=== PATIENT | female | born 1965 | race Caucasian/White ===

== ENCOUNTER → 2017-05-17 | Outpatient (CLI) | payer BC ==
[~2017-05-17] MED LIST: MULT-506 PO; ONDA8TAB62 SL; OXYC-106 PO; OXYC80TA PO; OXYSR/10 PO; [UNRECOGNIZED DRUG - OTHER] PO
--- NOTE | 2017-05-17 18:18 | DIAGNOSTIC IMAGING REPORT ---
THORACIC SPINE WITHOUT HISTORY: Pain CHRONIC BACK PAIN TECHNIQUE: Multiplanar multisequence MRI of the thoracic spine was performed without the use of contrast. COMPARISON: 10/30/2015 FINDINGS: Alignment and curvature are intact. No fracture or subluxation. No significant central canal or neural foraminal narrowing. Signal characteristics of the vertebral bodies are unremarkable. Mild degenerative disc desiccation at all levels. No change from the prior exam. IMPRESSION: 1. No evidence of disc herniation or spinal stenosis. 2. Mild degenerative disc change. 3. No change from the prior body. The above report was generated using voice recognition software. It may contain grammatical, syntax or spelling errors. Electronically signed by: Rafael Alvarez M.D. 05/17/2017 6:17 PM Dictated Date/Time: 05/17/2017 6:14 PM
== END | disposition home or self-care (01) ==
LOC: C.MRI 17:12
PROVIDERS: ATTEND Physical Medicine & Rehabilitation Sports Medicine
DX: M51.86 Other intervertebral disc disorders, lumbar region (principal)

== ENCOUNTER → 2017-05-18 | Outpatient (CLI) | payer BC ==
--- NOTE | 2017-05-18 20:28 | DIAGNOSTIC IMAGING REPORT ---
MRI CERVICAL WITHOUT CONTRAST CLINICAL HISTORY: Neck pain with bilateral arm radiculopathy. TECHNIQUE: Sagittal and axial T1, T2 and STIR images were obtained. COMPARISON STUDY: 03/03/2015 There are no suspicious areas of marrow replacement. No intrinsic cervical cord lesions are visualized. C2-3: There is no evidence of disc bulge or focal herniation. There is no spinal or foraminal stenosis. C3-4: There is no evidence of disc bulge or focal herniation. There is no spinal or foraminal stenosis. C4-5: There is a minimal circumferential disc bulge. There is no significant spinal foraminal stenosis C5-6 :There is a mild circumferential disc bulge. There is mild spinal canal narrowing. There is right-sided foraminal narrowing. C6-7: There is a small central disc protrusion minimally asymmetric to the left. There is deformity of the anterior thecal sac. There is no significant foraminal narrowing C7-T1: There is no evidence of disc bulge or focal herniation. There is no evidence of spinal or foraminal stenosis. IMPRESSION: 1. No significant change from the prior study 2. C5-6 disc bulge with mild spinal stenosis and right-sided foraminal narrowing 3. Small C6-7 central disc protrusion. 4. No cord lesions are visualized. Electronically signed by: Jeronimo Leslie M.D. 05/18/2017 8:27 PM Dictated Date/Time: 05/18/2017 8:23 PM
== END | disposition home or self-care (01) ==
LOC: C.MRI 19:26
PROVIDERS: ATTEND Physical Medicine & Rehabilitation Sports Medicine
DX: M50.20 Other cervical disc displacement, unspecified cervical region (principal)

== ENCOUNTER → 2017-05-19 | Outpatient (CLI) | payer BC ==
--- NOTE | 2017-05-19 16:07 | DIAGNOSTIC IMAGING REPORT ---
LUMBAR SPINE MRI HISTORY: Low back pain. THORACIC DISC Disease, back Pain, cervicalgia TECHNIQUE: Multiplanar multisequence MRI of the lumbar spine was performed without the use of contrast. COMPARISON: Lumbar spine MRI 08/15/2014. FINDINGS: For the purpose of the report the L5-S1 disc space will be located on axial image 27 of 30. Mild discharge scoliosis, unchanged. Alignment remains intact. There are few scattered hemangiomas within the L3 and L4 vertebral bodies, unchanged. The conus terminates at the L1 level. Moderate disc space narrowing at L4-L5. Moderate to severe disc space narrowing at L5-S1. This remains unchanged. The visualized retroperitoneal soft tissues are unremarkable. Mild soft tissue edema posterior to the S1-S3 levels. This remains there is evidence for previous laminectomy at L5. L1-L2: No significant central canal or neural foraminal narrowing. L2-L3: No significant central canal or neural foraminal narrowing. L3-L4: Small broad-based posterior disc bulge with ligamentum and facet hypertrophy. This results in interval central canal narrowing. No significant neural foraminal narrowing. L4-L5: No significant central canal or neural foraminal narrowing. Bilateral facet arthrosis. L5-S1: No central canal narrowing. Bilateral facet arthrosis resulting in mild left-sided neural foraminal narrowing. IMPRESSION: 1. No change compared to the prior study. 2. Postoperative changes at L5. 3. Minimal central canal narrowing at L3-L4 due to the broad-based posterior disc bulge. Electronically signed by: Nigel Bernardo M.D. 05/19/2017 4:05 PM Dictated Date/Time: 05/19/2017 3:59 PM
== END | disposition home or self-care (01) ==
LOC: C.MRI 14:49
PROVIDERS: ATTEND Physical Medicine & Rehabilitation Sports Medicine
DX: M51.86 Other intervertebral disc disorders, lumbar region (principal)

== ENCOUNTER → 2017-10-19 | Outpatient (CLI) | payer BC ==
--- NOTE | 2017-10-19 14:53 | DIAGNOSTIC IMAGING REPORT ---
R HIP UNILATERAL MIN 2 VIEWS HISTORY: 52 years-old Female LATERAL RIGHT HIP PAIN acute right-sided hip pain without reported trauma COMPARISON: CT abdomen and pelvis 07/14/2010 TECHNIQUE: 2 views of the right hip FINDINGS: There is mild right hip osteoarthritis. No acute fracture or dislocation identified. Imaged right hemipelvis appears intact. Soft tissues are within normal limits without opaque foreign body. IMPRESSION: Mild degenerative changes without acute fracture or dislocation. The above report was generated using voice recognition software. It may contain grammatical, syntax or spelling errors. Electronically signed by: Pito Banegas M.D. 10/19/2017 2:52 PM Dictated Date/Time: 10/19/2017 2:51 PM
== END | disposition home or self-care (01) ==
LOC: C.RDSM 13:20
PROVIDERS: ATTEND Internal Medicine
DX: M25.551 Pain in right hip (principal)

== ENCOUNTER → 2017-12-26 | Outpatient (CLI) | payer BC ==
--- NOTE | 2017-12-26 16:56 | DIAGNOSTIC IMAGING REPORT ---
ABDOMEN LIMITED (US) CLINICAL HISTORY: Bilateral groin pain and swelling. COMPARISON STUDY: Abdomen and pelvis CT 07/14/2010. FINDINGS: Real-time sonographic imaging of the bilateral inguinal regions was performed. No fluid collection or masses identified. Bilateral inguinal lymph nodes are noted. The majority of these are subcentimeter in size in short axis diameter and demonstrate normal fatty laurel and normal cortices. Dominant lymph node within the left groin measures 3.0 x 1.6 x 0.9 cm best seen on image 26. This is borderline enlarged and demonstrates a slightly thickened cortex. IMPRESSION: 1. No fluid collections or masses identified within the bilateral inguinal regions. 2. A single borderline enlarged left inguinal lymph node measuring 3.0 x 1.6 x 0.9 cm. Consider one month follow-up to ensure stability/resolution. Otherwise, the remaining bilateral inguinal lymph nodes do not meet sonographic criteria for pathology. Electronically signed by: Nigel Bernardo M.D. 12/26/2017 4:54 PM Dictated Date/Time: 12/26/2017 4:51 PM
--- NOTE | 2017-12-26 17:00 | DIAGNOSTIC IMAGING REPORT ---
ABDOMINAL ULTRASOUND, RIGHT UPPER QUADRANT HISTORY: Right upper quadrant pain.. COMPARISON: Abdominal ultrasound 05/30/2013. FINDINGS: Pancreas: The pancreatic head is obscured by overlying bowel gas. The remaining portions of the pancreas are within normal limits. Pancreatic duct is top normal in diameter measuring up to 2.6 mm. Liver: Unremarkable. Gallbladder: No gallbladder wall thickening. No gallstones. CBD: 6.5 mm. Right kidney: No hydronephrosis. IMPRESSION: 1. Normal gallbladder. No gallstones. 2. Borderline dilated common bile duct measuring 6.5 mm. This is similar to the prior study. Recommend correlation with LFTs to exclude an obstructive Electronically signed by: Nigel Bernardo M.D. 12/26/2017 4:58 PM Dictated Date/Time: 12/26/2017 4:55 PM
== END | disposition home or self-care (01) ==
LOC: C.ULTR 15:36
PROVIDERS: ATTEND Internal Medicine
DX: R59.9 Enlarged lymph nodes, unspecified (principal); R10.11 Right upper quadrant pain

== ENCOUNTER → 2018-01-19 | Outpatient (CLI) | payer BC ==
[~2018-01-19] MED LIST changes: +GADAVIST IV PRN
--- NOTE | 2018-01-19 20:52 | DIAGNOSTIC IMAGING REPORT ---
MRI ABDOMEN COMBO CLINICAL HISTORY: Right upper quadrant abdominal pain. Right-sided upper back pain. TECHNIQUE: Imaging was performed prior to and following IV contrast injection. (6.5 cc intravenous Gadavist) COMPARISON STUDY: Biliary ultrasound dated 12/26/2017 FINDINGS: Imaging was performed in the axial and coronal planes. There are no suspicious areas of marrow replacement. No gallbladder abnormalities are visualized. There are tiny subcentimeter cyst within the caudate lobe. No suspicious hepatic masses are visualized. No splenic masses are visualized. The common bile duct remains borderline dilated measuring 6.6 mm. No common bile duct filling defects are visualized. There is no pancreatic ductal dilatation. No pancreatic masses are visualized. There is no abdominal aortic dilatation. There are no renal masses. There are no adrenal masses. There is no pathologic adenopathy. Postcontrast images reveal no pathologically enhancing masses. IMPRESSION: Borderline dilatation of the common bile duct measuring 6.6 mm. This remains unchanged from the prior ultrasound study. Tiny subcentimeter cyst within the caudate lobe of the liver. Otherwise normal MRI of the abdomen. Electronically signed by: Jeronimo Leslie M.D. 01/19/2018 8:51 PM Dictated Date/Time: 01/19/2018 8:45 PM
== END | disposition home or self-care (01) ==
LOC: C.MRI 19:13
PROVIDERS: ATTEND Internal Medicine
DX: K83.8 Other specified diseases of biliary tract (principal); R10.11 Right upper quadrant pain; K76.89 Other specified diseases of liver

== ENCOUNTER 2021-07-06 20:47 | Inpatient (IN) ==
[2021-07-06] MEDS ORDERED: SODIUM CHLORIDE 0.9% 1000ML 1,000 ML IV ONE (22:01)
--- NOTE | 2021-07-06 22:30 | Emergency Department Note ---
History of Present Illness General Chief complaint: Illness Stated complaint: COVID Time Seen by Provider: 07/06/21 21:18 Source: patient Mode of arrival: ambulatory Limitations: no limitations History of Present Illness Maximum Pain Intensity: 5 This patient is a 49-year-old female who presents to the emergency department for evaluation of COVID-19 symptoms. Patient first developed symptoms 8 days ago and tested positive 5 days ago. She did not receive a COVID-19 vaccination. She has had shortness of breath, dizziness/lightheadedness, nausea, and decreased appetite. She feels very dehydrated. She has had fevers and cough. She reports body aches. She has been taking Mucinex at home. She states that s he contacted her primary care provider's office who called her in a prescription for doxycycline but she has been unable to take this. She does states she has been monitoring her oxygen levels at home and they have dropped as low as 86%, especially at night. She states that today, they have been between 89 and 93%. Home Medications Medication Instructions Recorded Confirmed Type ascorbic acid (vitamin C) 1,000 mg 1,000 mg PO DAILY 12/28/19 07/06/21 History tablet aspirin 325 mg tablet,delayed 325 mg PO DAILY 12/28/19 07/06/21 History release cholecalciferol (vitamin D3) 50 1 unit PO DAILY 12/28/19 07/06/21 History mcg (2,000 unit) capsule diazepam 5 mg tablet 5 mg PO TID PRN 12/28/19 07/06/21 History multivitamin (Multiple Vitamins) 1 tab PO DAILY 12/28/19 07/06/21 History omega-3 fatty acids 1,000 mg 1,000 mg PO DAILY 12/28/19 07/06/21 History capsule (Fish Oil Concentrate) oxycodone 10 mg tablet,crush 30 mg PO Q12 12/28/19 07/06/21 History resistant,extended release 12 hr oxycodone-acetaminophen 10 mg-325 1 tab PO Q4H PRN 12/28/19 07/06/21 History mg tablet oxycodone 80 mg tablet,extended 80 mg PO BID 07/06/21 07/06/21 History release,12 hr Allergies Allergy/AdvReac Type Severity Reaction Status Date / Time shrimp Allergy Severe Swelling Verified 07/06/21 22:30 of Lip/Tongue/Throat walnut Allergy Severe Swelling Verified 07/06/21 22:30 of Lip/Tongue/Throat cephalexin [From Keflex] Allergy Mild Rash Verified 07/06/21 22:28 Corticosteroids Allergy Unknown Unknown Verified 07/06/21 22:30 (Glucocorticoids) edetic acid Allergy Unknown UNKNOWN Verified 07/06/21 22:28 glycerin Allergy Unknown UNKNOWN Verified 07/06/21 22:28 propofol Allergy Unknown UNKNOWN Verified 07/06/21 22:30 Egg Phospholipids Allergy Unknown UNKNOWN Uncoded 07/06/21 22:28 Past Med/Surg History Medical History Almanzar's palsy resolved Disc degeneration, lumbar Esophageal reflux Hypertension Irritable bowel syndrome Kidney stone passed on own Ovarian cyst Postmenopausal bleeding Surgical History H/O breast surgery H/O oral surgery wisdom teeth H/O: knee surgery right History of facial surgery (~1994) parotid tumor History of laparoscopy History of lumbar fusion x3 Ovarian cyst s/p drainage S/P appendectomy S/P colonoscopy S/P endoscopy S/P tonsillectomy Family History Mother Hypertension History of kidney cancer Grandmother (Paternal) Breast cancer Other Colorectal cancer Diabetes Heart disease Laryngeal cancer Thyroid disease Social History Smoking Status: Never smoker Second Hand Exposure: No; Hx Alcohol Use: Yes Hx Substance Use: No Preferred Language: Belarusian Communication Ability: Effective Advertising Sales Manager Required: No Beliefs That Will Affect Care: None marital status: Current Living Situation: Spouse current occupational status: employed current occupation: works with [employer] work in [employer], not traveling now. Other Information That Helps Us Care for You: No Feels Safe at Home: Yes Sunscreen Use: Yes Sexual Activity: has been sexually active within the last 12 months Assistive Devices: Contacts and Glasses Review of Systems A total of 10 systems reviewed and were otherwise negative Physical Exam Vital Signs Vital Signs - 24 hr 07/06/21 20:59 Temperature 37.7 C H Temperature Source Oral Pulse Rate 97 H Respiratory Rate 19 Respiratory Effort / Characteristics Non-Labored Respiratory Depth Normal Blood Pressure 124/68 Blood Pressure Mean 86 Pulse Oximetry 92 Oxygen Delivery Method Room Air Sepsis Recent Fever Within 48 Hours No Sepsis New/Unexplained Change in Mental Status N/A Sepsis Action Taken by Nursing No Action Required VITALS: Vitals are noted on the nurse's note and reviewed by myself. GENERAL: This is a 55-year-old female, in no acute distress, well-developed well-nourished. SKIN: The skin was without rashes. EARS: External auditory canals clear, tympanic membranes pearly hernandes without erythema or effusion bilaterally. EYES: Pupils equal round and reactive to light and accommodation. NOSE: Patent, turbinates without inflammation or discharge. No sinus tenderness. MOUTH: Mucous membranes moist. Tonsils are not enlarged. Pharynx without erythema or exudate. NECK: Supple without nuchal rigidity. No lymphadenopathy. HEART: Regular rate and rhythm without murmurs gallops or rubs. LUNGS: Clear to auscultation bilaterally without wheezes, rales or rhonchi. No retractions or accessory muscle use. EXTREMITIES: No pitting edema of the lower extremities. NEURO: Patient was alert and oriented to person place and time. Course Administered Medications Discontinued Medications Acetaminophen (Acetaminophen 325 Mg Tab) 650 mg PO Q4H PRN PRN Reason: Pain or Fever Stop: 08/06/21 04:01 Last Admin: 07/07/21 15:01 Dose: 650 mg Documented by: [id number] Hydrox/Mg Hydrox/Simethicone (Aluminum/Magnesium/Simeth (Maalox Max) 30 Ml Udc) 30 ml PO NOW STA Stop: 07/07/21 02:35 Last Admin: 07/07/21 02:43 Dose: 30 ml Documented by: [id number] Ascorbic Acid (Ascorbic Acid 500 Mg Tab) 1,000 mg PO DAILY [facility] Stop: 08/06/21 08:59 Last Admin: 07/08/21 08:34 Dose: 1,000 mg Documented by: [id number] Admin: 07/07/21 08:09 Dose: 1,000 mg Documented by: [id number] Aspirin (Aspirin 325 Mg Ectab) 325 mg PO DAILY [facility] Stop: 08/06/21 08:59 Last Admin: 07/08/21 08:34 Dose: 325 mg Documented by: [id number] Admin: 07/07/21 08:09 Dose: 325 mg Documented by: [id number] Dexamethasone (Dexamethasone Sod Inj 4 Mg/Ml Vial) Confirm Administered Dose 8 mg .ROUTE .STK-MED ONE Stop: 07/07/21 02:40 Last Admin: 07/07/21 02:42 Dose: Not Given Documented by: [id number] Enoxaparin Sodium (Enoxaparin Inj 40 Mg/0.4 Ml Syr) 40 mg SQ Q24H ELLEN Stop: 08/06/21 07:59 Last Admin: 07/08/21 08:33 Dose: 40 mg Documented by: [id number] Admin: 07/07/21 08:09 Dose: 40 mg Documented by: [id number] Sodium Chloride (Nss 1000ml) 1,000 mls @ 999 mls/hr IV .Q1H1M ONE Stop: 07/06/21 23:01 Last Infusion: 07/07/21 00:02 Dose: 0 mls/hr Documented by: [id number] Admin: 07/06/21 22:47 Dose: 999 mls/hr Documented by: [id number] Dexamethasone 6 mg/ Syringe 1.5 mls @ 1 mls/min IV ONE ONE Stop: 07/07/21 01:16 Last Admin: 07/07/21 02:42 Dose: 1 mls/min Documented by: [id number] Sodium Chloride (Nss 1000ml) 1,000 mls @ 100 mls/hr IV .Q10H ELLEN Stop: 07/07/21 14:01 Last Infusion: 07/07/21 15:07 Dose: 0 mls/hr Documented by: [id number] Admin: 07/07/21 04:57 Dose: 100 mls/hr Documented by: [id number] Dexamethasone 6 mg/ Syringe 1.5 mls @ 1 mls/min IV Q24H ELLEN Stop: 08/06/21 21:59 Last Admin: 07/07/21 21:14 Dose: 1 mls/min Documented by: [id number] Aztreonam 2,000 mg/ Dextrose 110 mls @ 100 mls/hr IV Q8H ELLEN; Protocol Stop: 07/17/21 03:59 Last Infusion: 07/08/21 22:04 Dose: 0 mls/hr Documented by: [id number] Admin: 07/08/21 20:58 Dose: 100 mls/hr Documented by: [id number] Infusion: 07/08/21 12:22 Dose: 0 mls/hr Documented by: [id number] Admin: 07/08/21 11:15 Dose: 100 mls/hr Documented by: [id number] Infusion: 07/08/21 06:37 Dose: 0 mls/hr Documented by: [id number] Admin: 07/08/21 04:33 Dose: 100 mls/hr Documented by: [id number] Infusion: 07/07/21 22:15 Dose: 0 mls/hr Documented by: [id number] Admin: 07/07/21 21:07 Dose: 100 mls/hr Documented by: [id number] Infusion: 07/07/21 14:14 Dose: 0 mls/hr Documented by: [id number] Admin: 07/07/21 12:45 Dose: 100 mls/hr Documented by: [id number] Infusion: 07/07/21 07:21 Dose: 0 mls/hr Documented by: [id number] Admin: 07/07/21 04:53 Dose: 100 mls/hr Documented by: [id number] Remdesivir 100 mg/ Sodium (Chloride) 250 mls @ 250 mls/hr IV Q24H ELLEN; Protocol Stop: 07/11/21 12:59 Last Infusion: 07/08/21 14:03 Dose: 0 mls/hr Documented by: [id number] Admin: 07/08/21 12:37 Dose: 250 mls/hr Documented by: [id number] Remdesivir 200 mg/ Sodium (Chloride) 250 mls @ 125 mls/hr IV 1600 ONE; Protocol Stop: 07/07/21 17:59 Last Infusion: 07/07/21 19:37 Dose: 0 mls/hr Documented by: [id number] Admin: 07/07/21 16:07 Dose: 125 mls/hr Documented by: [id number] Furosemide 20 mg/ Syringe 2 mls @ 4 mls/min IV ONE ONE Stop: 07/08/21 16:31 Last Admin: 07/08/21 17:08 Dose: 4 mls/min Documented by: [id number] Dexamethasone 10 mg/ Syringe 2.5 mls @ 1 mls/min IV Q24H ELLEN Stop: 08/07/21 18:59 Last Admin: 07/08/21 20:26 Dose: 1 mls/min Documented by: [id number] Acetaminophen (Ofirmev) 1,000 mg in 100 mls @ 400 mls/hr IV Q8H PRN PRN Reason: fever/pain Stop: 07/11/21 20:12 Last Infusion: 07/08/21 20:47 Dose: 0 mls/hr Documented by: [id number] Admin: 07/08/21 20:32 Dose: 400 mls/hr Documented by: [id number] Multivitamins (Multivitamin Tab) 1 tab PO QAM ELLEN Stop: 08/06/21 08:59 Last Admin: 07/08/21 08:34 Dose: 1 tab Documented by: [id number] Admin: 07/07/21 08:09 Dose: 1 tab Documented by: [id number] Ondansetron HCl (Ondansetron Inj 2 Mg/Ml 2 Ml Vial) 4 mg IV Q8H PRN PRN Reason: Nausea Stop: 08/06/21 17:12 Last Admin: 07/08/21 20:26 Dose: 4 mg Documented by: [id number] Admin: 07/08/21 06:35 Dose: 4 mg Documented by: [id number] Oxycodone HCl (Oxycodone Hcl 40 Mg Tabcr (Oxycontin)) 80 mg PO BID [facility] Stop: 07/21/21 08:59 Last Admin: 07/08/21 21:06 Dose: 80 mg Documented by: [id number] Admin: 07/08/21 08:33 Dose: 40 mg Documented by: [id number] Admin: 07/08/21 08:02 Dose: 40 mg Documented by: [id number] Admin: 07/07/21 21:18 Dose: 80 mg Documented by: [id number] Admin: 07/07/21 08:09 Dose: 80 mg Documented by: [id number] Oxycodone HCl (Oxycodone Hcl 15 Mg Tabcr (Oxycontin)) 30 mg PO Q12 [facility] Stop: 07/21/21 20:59 Last Admin: 07/08/21 21:24 Dose: Not Given Documented by: [id number] Admin: 07/08/21 08:02 Dose: 30 mg Documented by: [id number] Admin: 07/07/21 21:18 Dose: 30 mg Documented by: [id number] Oxycodone/Acetaminophen (Oxycodone/Acetaminophen 10-325 Tab) 1 tab PO Q4H PRN PRN Reason: Pain Stop: 07/21/21 04:01 Last Admin: 07/08/21 04:34 Dose: 1 tab Documented by: [id number] Admin: 07/07/21 13:07 Dose: 1 tab Documented by: [id number] Sodium Chloride (Sodium Chloride 0.9% 10ml Flush) 30 ml IV Q24H ELLEN Stop: 07/11/21 13:01 Last Admin: 07/08/21 14:03 Dose: 30 ml Documented by: [id number] Sodium Chloride (Sodium Chloride 0.9% 10ml Flush) 30 ml IV Q24H ELLEN Stop: 07/07/21 18:01 Last Admin: 07/07/21 19:21 Dose: 30 ml Documented by: [id number] Vitamin D (Cholecalciferol 1,000 Units 25 Mcg Tab) 2,000 units PO DAILY ELLEN Stop: 08/06/21 08:59 Last Admin: 07/08/21 08:34 Dose: 2,000 units Documented by: [id number] Admin: 07/07/21 08:09 Dose: 2,000 units Documented by: [id number] Medical Decision Making Differential Diagnosis Differential diagnosis include COVID-19, pneumonia, pulmonary embolism, pleural effusion, dehydration, among others. Home Medications Current Medication List: was personally reviewed by me Laboratory Data Attestation: I reviewed the patient's lab results. Result diagrams: 07/07/21 07:17 07/08/21 08:06 Lab Results 07/06/21 07/06/21 07/06/21 Range/Units 22:19 22:19 22:19 WBC 3.95 L (4.8-10.8) K/uL RBC 4.47 (4.2-5.4) M/uL Hgb 13.5 (12.0-16.0) g/dL Hct 40.2 (37-47) % MCV 89.9 (80-100) fL MCH 30.2 (25-34) pg MCHC 33.6 (32-36) g/dL RDW Std Deviation 43.1 (36.4-46.3) fL RDW Coeff of Katie 13.1 (11.5-14.5) % Plt Count 200 (130-400) K/uL MPV 10.2 (7.4-10.4) fL Immature Gran % (Auto) 0.0 % Neut % (Auto) 82.0 % Lymph % (Auto) 13.4 % Tyler % (Auto) 4.3 % Eos % (Auto) 0.0 % Baso % (Auto) 0.3 % Neut # (Auto) 3.24 (1.4-6.5) K/uL Lymph # (Auto) 0.53 L (1.2-3.4) K/uL Tyler # (Auto) 0.17 (0.11-0.59) K/uL Eos # (Auto) 0.00 (0-0.5) K/uL Baso # (Auto) 0.01 (0-0.2) K/uL Immature Gran # (Auto) 0.00 (0.00-0.02) K/uL Sodium 133 L (136-145) mmol/L Potassium 3.8 (3.5-5.1) mmol/L Chloride 97 L (98-107) mmol/L Carbon Dioxide 30 (21-32) mmol/L Anion Gap 6.0 (3-11) BUN 13 (7-18) mg/dl Creatinine 0.86 (0.6-1.2) mg/dl Est Cr Clr Drug Dosing 64.9 ml/min Est GFR ( Amer) 86.9 ml/min Est GFR (Non-Af Amer) 75.0 ml/min BUN/Creatinine Ratio 15.0 (10-20) Glucose 105 H (70-99) mg/dl Calcium 8.7 (8.5-10.1) mg/dl Total Bilirubin 0.3 (0.2-1) mg/dl AST 44 H (15-37) U/L ALT 37 (12-78) U/L Alkaline Phosphatase 56 (45-117) U/L C-Reactive Protein 10.00 H (0-0.29) mg/dl Total Protein 7.6 (6.4-8.2) gm/dl Albumin 3.4 (3.4-5.0) gm/dl Globulin 4.2 H (2.5-4.0) gm/dl Albumin/Globulin Ratio 0.8 L (0.9-2) Procalcitonin 0.10 (0-0.5) ng/ml Urine Color Urine Appearance (Clear) Urine pH (4.5-7.5) Ur Specific [place] (1.000-1.030) Urine Protein (Negative) Urine Glucose (UA) (Negative) Urine Ketones (Negative) Urine Blood (Negative) Urine Nitrite (Negative) Urine Bilirubin (Negative) Urine Urobilinogen (Negative) Ur Leukocyte Esterase (Negative) Urine WBC (Auto) (0-5) /hpf Urine RBC (Auto) (0-4) /hpf U Hyaline Cast (Auto) (0-5) /lpf U Epithel Cells (Auto) (0-5) /lpf Urine Bacteria (Auto) (Negative) 07/06/21 Range/Units 22:40 WBC (4.8-10.8) K/uL RBC (4.2-5.4) M/uL Hgb (12.0-16.0) g/dL Hct (37-47) % MCV (80-100) fL MCH (25-34) pg MCHC (32-36) g/dL RDW Std Deviation (36.4-46.3) fL RDW Coeff of Katie (11.5-14.5) % Plt Count (130-400) K/uL MPV (7.4-10.4) fL Immature Gran % (Auto) % Neut % (Auto) % Lymph % (Auto) % Tyler % (Auto) % Eos % (Auto) % Baso % (Auto) % Neut # (Auto) (1.4-6.5) K/uL Lymph # (Auto) (1.2-3.4) K/uL Tyler # (Auto) (0.11-0.59) K/uL Eos # (Auto) (0-0.5) K/uL Baso # (Auto) (0-0.2) K/uL Immature Gran # (Auto) (0.00-0.02) K/uL Sodium (136-145) mmol/L Potassium (3.5-5.1) mmol/L Chloride (98-107) mmol/L Carbon Dioxide (21-32) mmol/L Anion Gap (3-11) BUN (7-18) mg/dl Creatinine (0.6-1.2) mg/dl Est Cr Clr Drug Dosing ml/min Est GFR ( Amer) ml/min Est GFR (Non-Af Amer) ml/min BUN/Creatinine Ratio (10-20) Glucose (70-99) mg/dl Calcium (8.5-10.1) mg/dl Total Bilirubin (0.2-1) mg/dl AST (15-37) U/L ALT (12-78) U/L Alkaline Phosphatase (45-117) U/L C-Reactive Protein (0-0.29) mg/dl Total Protein (6.4-8.2) gm/dl Albumin (3.4-5.0) gm/dl Globulin (2.5-4.0) gm/dl Albumin/Globulin Ratio (0.9-2) Procalcitonin (0-0.5) ng/ml Urine Color Dark Yellow Urine Appearance Clear (Clear) Urine pH 5.5 (4.5-7.5) Ur Specific [place] 1.029 (1.000-1.030) Urine Protein 2+ H (Negative) Urine Glucose (UA) Negative (Negative) Urine Ketones 2+ H (Negative) Urine Blood Negative (Negative) Urine Nitrite Negative (Negative) Urine Bilirubin Negative (Negative) Urine Urobilinogen Negative (Negative) Ur Leukocyte Esterase 1+ H (Negative) Urine WBC (Auto) 10-30 H (0-5) /hpf Urine RBC (Auto) 0-4 (0-4) /hpf U Hyaline Cast (Auto) 10-30 H (0-5) /lpf U Epithel Cells (Auto) >30 H (0-5) /lpf Urine Bacteria (Auto) Negative (Negative) Imaging Data Attestation: I personally reviewed and interpreted this imaging study as follows: My Impression: CHEST 1 VIEW: Multifocal pneumonia consistent with history of COVID-19 infection. MDM Narrative Continuous retail department manager: Order was placed for continuous retail department manager. Patient was placed on the retail department manager. Patient was noted to be in normal sinus rhythm at an initial rate of 65 bpm. The patient is a 55-year-old female who presents today complaining of worsening symptoms of COVID-19 infection. Labs were consistent with COVID-19 infection, with a mild leukopenia. Chest x-ray showed a multifocal pneumonia. Patient was found to be hypoxic, especially when falling asleep. She reports O2 sats of 86- 89% at home. She was given IV dexamethasone and her case was discussed with the hospitalist service, who agreed to evaluate the patient for further care. Impression & Plan Hypoxia, Pneumonia due to COVID-19 virus Discharge Plan Visit Data Chief Complaint: Illness Stated Complaint: COVID ED Midlevel Provider: Sona Mkceon Discharge Problem: Hypoxia, Pneumonia due to COVID-19 virus Patient Disposition: Admitted As Inpatient Discharge Instructions Interventions: ED Discharge Assessment Last Done: 07/07/21 20:35
[2021-07-06 22:35] LABS: Basophils # (auto) 0.01 K/uL (0-0.2); Basophils % (auto) 0.3 %; Hematocrit (blood only) 40.2 % (37-47); Hemoglobin 13.5 g/dL (12.0-16.0); Lymphocytes # (auto) 0.53 K/uL (1.2-3.4); Lymphocytes % (auto) 13.4 %; Mean Corpuscular Hemoglobin 30.2 pg (25-34); Mean Corpuscular Hgb Conc 33.6 g/dL (32-36); Mean Corpuscular Volume 89.9 fL (80-100); Mean Platelet Volume 10.2 fL (7.4-10.4); Monocytes # (auto) 0.17 K/uL (0.11-0.59); Monocytes % (auto) 4.3 %; Neutrophils # (auto) 3.24 K/uL (1.4-6.5); Platelet Count 200 K/uL (130-400); RDW Coefficient of Variation 13.1 % (11.5-14.5); RDW Standard Deviation 43.1 fL (36.4-46.3); Red Blood Count 4.47 M/uL (4.2-5.4); White Blood Count 3.95 K/uL (4.8-10.8)
[2021-07-06 22:47] LABS: Albumin Level 3.4 gm/dl (3.4-5.0); Calcium 8.7 mg/dl (8.5-10.1); Creatinine Clr Calc Pharmacy 64.9 ml/min; Est GFR (African American) 86.9 ml/min; Potassium 3.8 mmol/L (3.5-5.1)
[2021-07-06 22:50] LABS: Albumin Globulin Ratio 0.8 (0.9-2); Bilirubin,Total 0.3 mg/dl (0.2-1); Globulin 4.2 gm/dl (2.5-4.0); Total Protein 7.6 gm/dl (6.4-8.2)
[2021-07-06 23:08] LABS: Appearance Urine Clear (Clear); Bacteria Urine Automated Negative (Negative); Bilirubin Urine Negative (Negative); Blood Urine Negative (Negative); Color Urine Dark Yellow; Epithelial Cell Urine Auto >30 /lpf (0-5); Glucose Urine UA Negative (Negative); Ketones Urine 2+ (Negative); Leukocyte Esterase Urine 1+ (Negative); Nitrite Urine Negative (Negative); Protein Urine 2+ (Negative); RBC Urine Automated 0-4 /hpf (0-4); Specific Gravity Urine 1.029 (1.000-1.030); Urobilinogen Urine Negative (Negative); pH Urine 5.5 (4.5-7.5)
[2021-07-07] MEDS ORDERED: dexAMETHasone 6 MG in SYRINGE 0 ML IV ONE (01:15)
[2021-07-07] MEDS ORDERED: ALUMINUM/MAGNESIUM/SIMETH (MAALOX MAX) 30 ML UDC PO STA (02:34)
[2021-07-07] MEDS ORDERED: DEXAMETHASONE SOD INJ 4 MG/ML VIAL ONE (02:39)
[2021-07-07] MEDS ORDERED: diazePAM 5 MG TABLET PO PRN (04:02)
[2021-07-07] MEDS ORDERED: ONDANSETRON INJ 2 MG/ML 2 ML VIAL IV PRN (04:02)
[2021-07-07] MEDS ORDERED: oxyCODONE/ACETAMINOPHEN 10-325 TAB PO PRN ×2 (04:02→09:09)
[2021-07-07] MEDS ORDERED: OXYCODONE 80 MG PO SCH ×2 (04:02→21:00)
[2021-07-07] MEDS ORDERED: NITROGLYCERIN SL 0.4 MG/TAB TAB SL PRN (04:02)
[2021-07-07] MEDS ORDERED: SODIUM CHLORIDE 0.9% 1000ML 1,000 ML IV SCH (04:02)
[2021-07-07] MEDS ORDERED: ACETAMINOPHEN 325 MG TAB PO PRN (04:02)
[2021-07-07] MEDS ORDERED: AZTREONAM CONSULT ACTIVE PRN (04:11)
--- NOTE | 2021-07-07 04:28 | History and Physical Report ---
DATE OF ADMISSION: 07/07/2021. CHIEF COMPLAINT: Shortness of breath. HISTORY OF PRESENT ILLNESS: This 55-year-old female with past medical history significant for hyperlipidemia, could not tolerate statins in the past, GERD, vitamin D deficiency, displacement of lumbar intervertebral disk, presents with COVID pneumonia. The patient says she was having symptoms of covid 8 days ago diagnosed about 5 days ago. having fevers. Headaches, poor appetite and body aches, diarrhea. Currently complains of some blurred vision, some dizziness. Has congestion. Denies sore throat. No dysphagia, poor appetite. She thinks she might have some chest discomfort, but not sure. No nausea, no vomiting. The patient checked her oxygen saturations at home and it was dropping to 80s, so that is why she came here. In the ER, her oxygen was 88s on room air; with 2 liters, she is saturating above 94%, somewhat sleepy, complaints of severe headache. ALLERGIES: SHRIMP, WALNUTS, KEFLEX, CORTICOSTEROIDS, GLYCERIN, PROPOFOL, PHOSPHOLIPIDS, EDETIC ACID. PAST MEDICAL HISTORY: As mentioned above. PAST SURGICAL HISTORY: Anterior lumbar arthroplasty, removal, breast reconstruction, colonoscopy with biopsy, dental surgery, abdominal ovary cyst drained, appendectomy, tonsillectomy, small bowel endoscopy. MEDICATIONS: The patient is on vitamin C 1000 mg p.o. daily, aspirin 325 mg p.o. daily, vitamin D 2000 International Units p.o. daily, Valium 5 mg p.o. t.i.d. p.r.n., multivitamin one tablet p.o. daily, Bradford fish oil 1 gram p.o. daily, oxycodone extended release 30 mg p.o. b.i.d., oxycodone and acetaminophen 10/325 1 tablet p.o. q.4 hours p.r.n. FAMILY HISTORY: Significant for mother has kidney cancer, diabetes, hypertension. Maternal grandmother, glioblastoma. Father had colon cancer, diabetes, hypertension, prostate cancer. SOCIAL HISTORY: . Smokes 1 pack a day for 8 years. Alcohol, very rarely. No drug use. REVIEW OF SYSTEMS: As per HPI. Rest of the review of systems is negative. PHYSICAL EXAMINATION: GENERAL: The patient is of moderate build, not in acute distress. VITAL SIGNS: Temperature 37.7, pulse 84, respiratory rate 14, blood pressure 119/66, oxygen 95% on 2 liters. HEENT: Pupils equal, round and reactive to light. Oral mucosa dry. NECK: No JVD or neck masses. CARDIOVASCULAR: S1 and S2 heard. Regular rate and rhythm. No murmur, no gallop. RESPIRATORY SYSTEM: Normal AP diameter. No accessory muscle use. No wheezing, no crackles. ABDOMEN: Soft, bowel sounds present, nontender, no distention. CENTRAL NERVOUS SYSTEM: Cranial nerves II-XII grossly nonfocal. EXTREMITIES: No edema, no erythema. LABORATORY DATA: WBC 3.9, hemoglobin 13.5, hematocrit 40.2, platelets 200. Sodium 133, potassium 3.8, chloride 97, bicarbonate 30, BUN 13, creatinine 0.8, serum glucose 105, calcium 8.7, total bilirubin 0.3, AST 44, ALT 37, alkaline phosphatase 56. C-reactive protein 10. Procalcitonin 0.1. Urinalysis, +1 leukocyte esterase. IMAGING DATA: Chest x-ray: Multifocal pneumonia. ASSESSMENT AND PLAN: This 55-year-old female who presents with COVID pneumonia and hypoxia. 1. COVID pneumonia and hypoxia with oxygen saturation 88% on room air, 2 liters saturating ok. Having symptoms last 8 days, meets criteria for steroids, remdesivir. The patient has allergic reaction to STEROIDS in the past with HTN, but she is okay to try Decadron, but she is not sure about remdesivir. She will check with her family. Told the patient that the medicine will also have to be given within 10 days. She is already 8 days, but she wants to check with the family before she makes a decision to take remdesivir. We will follow the patient in the med tele. 2. Chronic pain: On high doses of pain meds. Close monitoring. 3. Hyperlipidemia: Not on any medications. 4. Deep venous thrombosis prophylaxis: Lovenox. DISPOSITION: Closely monitor in the med tele. PT/OT prior to discharge. Social service to help with discharge planning. Job ID: [id number] MTDD
[2021-07-07] MEDS: AZTREONAM 2,000 MG in DEXTROSE 5% 100 ML IV SCH ×3 (04:53→21:07)
[2021-07-07 07:55] LABS: Hematocrit (blood only) 37.7 % (37-47); Hemoglobin 12.5 g/dL (12.0-16.0); Immature Granulocytes # (auto) 0.01 K/uL (0.00-0.02); Immature Granulocytes % (auto) 0.3 %; Lymphocytes # (auto) 0.49 K/uL (1.2-3.4); Lymphocytes % (auto) 12.4 %; Mean Corpuscular Hemoglobin 30.1 pg (25-34); Mean Corpuscular Hgb Conc 33.2 g/dL (32-36); Mean Corpuscular Volume 90.8 fL (80-100); Mean Platelet Volume 10.4 fL (7.4-10.4); Monocytes # (auto) 0.12 K/uL (0.11-0.59); Neutrophils # (auto) 3.34 K/uL (1.4-6.5); Neutrophils % (auto) 84.3 %; Platelet Count 197 K/uL (130-400); RDW Coefficient of Variation 13.2 % (11.5-14.5); RDW Standard Deviation 44.1 fL (36.4-46.3); Red Blood Count 4.15 M/uL (4.2-5.4); White Blood Count 3.96 K/uL (4.8-10.8)
[2021-07-07] MEDS: ASPIRIN 325 MG ECTAB PO SCH (08:09)
[2021-07-07] MEDS: MULTIVITAMIN TAB PO SCH (08:09)
[2021-07-07] MEDS: ENOXAPARIN INJ 40 MG/0.4 ML SYR SQ SCH (08:09)
[2021-07-07] MEDS: ASCORBIC ACID 500 MG TAB PO SCH (08:09)
[2021-07-07] MEDS: CHOLECALCIFEROL 1,000 UNITS 25 MCG TAB PO SCH (08:09)
[2021-07-07 08:26] LABS: BUN Creatinine Ratio 15.4 (10-20); Calcium 8.5 mg/dl (8.5-10.1); Creatinine Clr Calc Pharmacy 76.5 ml/min; Est GFR (Non-African American) 91.4 ml/min; Magnesium 2.2 mg/dl (1.8-2.4)
--- NOTE | 2021-07-07 09:05 | XRay Report ---
SINGLE VIEW CHEST CLINICAL HISTORY: Cough and dyspnea. FINDINGS: An AP, portable, upright chest radiograph is compared to study dated 10/15/2015. The cardio mediastinal silhouette is unremarkable. Multifocal airspace consolidation is seen bilaterally, greate st in the lower lobes. No large pleural effusion or pneumothorax is seen. The bony thorax is grossly intact. IMPRESSION: Multifocal airspace consolidation is consistent with pneumonia. Clinical correlation will be required and radiographic follow-up to resolution is recommended. ACT 112: Negative or not required by law. Electronically signed by: Kyle Drake M.D. 07/07/2021 9:04 AM
[2021-07-07] MEDS: oxyCODONE/ACETAMINOPHEN 10-325 TAB PO PRN (13:07)
[2021-07-07] MEDS ORDERED: REMDESIVIR 200 MG in SODIUM CHLORIDE 0.9% 210 ML IV ONE (16:00)
--- NOTE | 2021-07-07 17:13 | Hospitalist Progress Note ---
Date of Service July 07, 2021 Assessment & Plan (1) Pneumonia due to COVID-19 virus: Plan: Present on admission with worsening SOB and hypoxia Testing Positive for COVID 19 CXR showed multifocal airspace consolidation is consistent with pneumonia. He was started on IV decadron 6mg Discussed with son and patient, they are interested to start remdesivir Major side effect about Remdesivir discussed with patient and his son such as elevated liver enzymes Will monitor liver enzymes whie on remdesivir` Will check inflammatory marker such as ESR, CRP, Ferritin Pt was advised to prone Continue oxygen supplement Continue monitor closely Chronic pain: On high doses of pain meds. Hyperlipidemia: Not on any medications. Deep venous thrombosis prophylaxis: Lovenox. Admission and Anticipated Discharge Date Admission Date: July 07, 2021 Subjective Pt was seen and examined for SOB due to COVID 19 Lying in bed with no acute distress Pt said that her breathing slightly better I spoke to her son on her cellphone during the encounter while seeing her Denies any chest pain, palpitation, dizziness and SOB Review of Systems Review of Systems: All systems reviewed & are unremarkable except as noted in Subjective Physical Exam Physical Exam: General- No acute distress Head- atraumatic Eyes- PERRL, EOMI, ENT- oropharynx clear Neck- supple, no JVD Lungs- clear to auscultation Heart- regular rhythm; no murmur Abdomen- normal bowel sounds, soft, nontender Extremities- no calf tenderness Neuro- alert, oriented x 3; PERRL, EOMI; no facial palsy; no dysarthria Skin- warm & dry Results & Data Results & Data ([facility]) Vital Signs (Past 12 Hours) Vital Signs Temp Pulse Resp BP Pulse Ox 07/07/21 15:00 38 C H 57 L 22 109/74 92 07/07/21 12:44 37.1 C 62 24 100/72 91 07/07/21 08:44 72 22 107/51 L 94 07/07/21 06:18 75 14 117/66 92 07/07/21 05:59 79 17 117/66 93
[2021-07-07] MEDS ORDERED: SODIUM CHLORIDE 0.9% 10ML FLUSH IV SCH (18:00)
[2021-07-07] MEDS: oxyCODONE HCL 15 MG TABCR (OxyCONTIN) PO SCH (21:18)
[2021-07-07] MEDS ORDERED: dexAMETHasone 6 MG in SYRINGE 0 ML IV SCH (22:00)
[2021-07-08] MEDS: AZTREONAM 2,000 MG in DEXTROSE 5% 100 ML IV SCH ×3 (04:33→20:58)
[2021-07-08] MEDS: oxyCODONE/ACETAMINOPHEN 10-325 TAB PO PRN (04:34)
[2021-07-08] MEDS: ONDANSETRON INJ 2 MG/ML 2 ML VIAL IV PRN ×2 (06:35→20:26)
[2021-07-08] MEDS: oxyCODONE HCL 15 MG TABCR (OxyCONTIN) PO SCH ×3 (08:02→21:24)
[2021-07-08] MEDS: ENOXAPARIN INJ 40 MG/0.4 ML SYR SQ SCH (08:33)
[2021-07-08] MEDS: ASCORBIC ACID 500 MG TAB PO SCH (08:34)
[2021-07-08] MEDS: CHOLECALCIFEROL 1,000 UNITS 25 MCG TAB PO SCH (08:34)
[2021-07-08] MEDS: MULTIVITAMIN TAB PO SCH (08:34)
[2021-07-08] MEDS: ASPIRIN 325 MG ECTAB PO SCH (08:34)
[2021-07-08 09:16] LABS: Albumin Level 2.8 gm/dl (3.4-5.0); BUN Creatinine Ratio 23.3 (10-20); C Reactive Protein 10.5 mg/dl (0-0.29); Calcium 8.6 mg/dl (8.5-10.1); Creatinine Clr Calc Pharmacy 85.9 ml/min; Est GFR (African American) 114.2 ml/min; Est GFR (Non-African American) 98.6 ml/min; Potassium 4.2 mmol/L (3.5-5.1)
[2021-07-08 09:20] LABS: Albumin Globulin Ratio 0.6 (0.9-2); Bilirubin,Total 0.3 mg/dl (0.2-1); Ferritin 629.4 ng/ml (8-388); Globulin 4.4 gm/dl (2.5-4.0); Total Protein 7.2 gm/dl (6.4-8.2)
[2021-07-08] MEDS ORDERED: REMDESIVIR 100 MG in SODIUM CHLORIDE 0.9% 230 ML IV SCH (12:00)
[2021-07-08] MEDS ORDERED: SODIUM CHLORIDE 0.9% 10ML FLUSH IV SCH (13:00)
[2021-07-08] MEDS ORDERED: FUROSEMIDE 20 MG in SYRINGE 0 ML IV ONE (16:30)
--- NOTE | 2021-07-08 17:25 | Hospitalist Progress Note ---
Date of Service July 08, 2021 Assessment & Plan (1) Pneumonia due to COVID-19 virus: Plan: Present on admission with worsening SOB and hypoxia Testing Positive for COVID 19 CXR showed multifocal airspace consolidation is consistent with pneumonia. He was started on IV decadron 6mg Discussed with son and patient about Remdesivir. Pt requested patient to start and and Mrs. Green agreed to start Remdesivir Major side effect about Remdesivir discussed with patient and his son such as elevated liver enzymes Continue monitor liver enzymes while on Remdesivir` Inflammatory marker such as ESR 51, CRP from 10 to 10.5 , Ferritin 629.4 Pt was advised to prone Pt was desaturated and was placed on high flow oxygen Lasix 20mg IV x1 today Currently on 45L with 60% oxygen Case discussed with pulmonology Dr. Diaz that recommended to increase Decadron to 10mg IV (to give one dose now) and additional Lasix later if low urinary output. Pulmonology consult placed. Family requested to transfer to [place] I explained to the family since the transfer request is from the family preference that [place] will need to accept the patient and pt my get a bill for the transport. Family did not have any objection about any cost. said that they already got in touch with [place] since they have someone in the board that already get them a bed for the patient. Son called and said that they got in touch with [facility] PHYSICIAN OFFICE ASSISTANT that already got te patient a bed in [place]. I spoke [place] [facility] [place] Rod[place] and Dr. Carter (Hospitalist). Dr Carter said the pt is receiving the appropriate therapy for the COVID 19 at [facility] and she doesn't think [facility] will do anything different, but since it is from family request, she does not want to turn the patient away. Dr. Carter agreed to accept the patient to transfer to [place]. I called pt to her room phone and family as well to inform them that the patient was accepted to [place]. Continue monitor closely Chronic pain: On high doses of pain meds. Hyperlipidemia: Not on any medications. Deep venous thrombosis prophylaxis: Lovenox. Disposition Will transfer to [facility] Admission and Anticipated Discharge Date Admission Date: July 07, 2021 Subjective Pt was seen and examined for SOB due to COVID 19 Lying in bed continues to require oxygen supplement Pt desaturated with minimal exertion This morning she was on 9L oxygen supplement I spoke to her son on her cellphone during the encounter while seeing her Later this afternoon her oxygen saturation worsening where she was placed on high flow oxygen with 45L at 60% Later again I spoke to the son and over the phone, they requested pt to be transferred to [place] I explained to the family since the transfer request is from the family preference that [facility] will need to accept the patient and pt my get a bill for the transport. Family did not have any objection about any cost. said that they already got in touch with [facility] since they have someone in the board that already get them a bed for the patient. I spoke [place] [facility] [place] Rod[place] and Dr. Carter (Hospitalist). Dr Carter said the pt is receiving the appropriate therapy for the COVID 19 at [facility] and she doesn't think [facility] will do anything different, but since it is from family request, she does not want to turn the patient away. Dr. Carter agreed to accept the patient to transfer to [place]. I called pt to her room phone and family as well to inform them that the patient was accepted to [place]. Review of Systems Review of Systems: All systems reviewed & are unremarkable except as noted in Subjective Physical Exam Physical Exam: General- No acute distress Head- atraumatic Eyes- PERRL, EOMI, ENT- oropharynx clear Neck- supple, no JVD Lungs- Diminished BS Heart- regular rhythm; no murmur Abdomen- normal bowel sounds, soft, nontender Extremities- no calf tenderness Neuro- alert, oriented x 3; PERRL, EOMI; no facial palsy; no dysarthria Skin- warm & dry Results & Data Results & Data ([facility]) Vital Signs (Past 12 Hours) Vital Signs Temp Pulse Pulse Resp BP Pulse Ox 07/08/21 17:08 37.6 C H 71 20 110/68 90 07/08/21 17:06 64 18 95 07/08/21 16:04 66 89 L 07/08/21 15:23 69 07/08/21 15:21 37.6 C H 71 20 100/63 93 07/08/21 11:14 37 C 63 18 97/56 L 91 07/08/21 08:50 93 07/08/21 08:45 87 L 07/08/21 08:30 64 07/08/21 07:55 88 L 07/08/21 07:54 63 18 104/63 91 07/08/21 06:35 92
[2021-07-08] MEDS ORDERED: dexAMETHasone 10 MG in SYRINGE 0 ML IV SCH (19:00)
[2021-07-08] MEDS ORDERED: ACETAMINOPHEN 1,000 MG/100 ML VIAL IV PRN (20:13)
--- NOTE | 2021-07-08 21:05 | Discharge Summary ---
Date of Service July 08, 2021 Admission HPI Per Admitting Provider CHIEF COMPLAINT: Shortness of breath. HISTORY OF PRESENT ILLNESS: This 55-year-old female with past medical history significant for hyperlipidemia, could not tolerate statins in the past, GERD, vitamin D deficiency, displacement of lumbar intervertebral disk, presents with COVID pneumonia. The patient says she was having symptoms of covid 8 days ago diagnosed about 5 days ago. having fevers. Headaches, poor appetite and body aches, diarrhea. Currently complains of some blurred vision, some dizziness. Has congestion. Denies sore throat. No dysphagia, poor appetite. She thinks she might have some chest discomfort, but not sure. No nausea, no vomiting. The patient checked her oxygen saturations at home and it was dropping to 80s, so that is why she came here. In the ER, her oxygen was 88s on room air; with 2 liters, she is saturating above 94%, somewhat sleepy, complaints of severe headache. Admission Exam Per Admitting Provider GENERAL: The patient is of moderate build, not in acute distress. VITAL SIGNS: Temperature 37.7, pulse 84, respiratory rate 14, blood pressure 119/66, oxygen 95% on 2 liters. HEENT: Pupils equal, round and reactive to light. Oral mucosa dry. NECK: No JVD or neck masses. CARDIOVASCULAR: S1 and S2 heard. Regular rate and rhythm. No murmur, no gallop. RESPIRATORY SYSTEM: Normal AP diameter. No accessory muscle use. No wheezing, no crackles. ABDOMEN: Soft, bowel sounds present, nontender, no distention. CENTRAL NERVOUS SYSTEM: Cranial nerves II-XII grossly nonfocal. EXTREMITIES: No edema, no erythema. Principal Diagnosis 35 minutes Discharge Exam General- No acute distress Head- atraumatic Eyes- PERRL, EOMI, ENT- oropharynx clear Neck- supple, no JVD Lungs- Diminished BS Heart- regular rhythm; no murmur Abdomen- normal bowel sounds, soft, nontender Extremities- no calf tenderness Neuro- alert, oriented x 3; PERRL, EOMI; no facial palsy; no dysarthria Skin- warm & dry Discharge Data Allergies Allergy/AdvReac Type Severity Reaction Status Date / Time shrimp Allergy Severe Swelling Verified 07/06/21 22:30 of Lip/Tongue/Throat walnut Allergy Severe Swelling Verified 07/06/21 22:30 of Lip/Tongue/Throat cephalexin [From Keflex] Allergy Mild Rash Verified 07/06/21 22:28 Corticosteroids Allergy Unknown Unknown Verified 07/06/21 22:30 (Glucocorticoids) edetic acid Allergy Unknown UNKNOWN Verified 07/06/21 22:28 glycerin Allergy Unknown UNKNOWN Verified 07/06/21 22:28 propofol Allergy Unknown UNKNOWN Verified 07/06/21 22:30 Egg Phospholipids Allergy Unknown UNKNOWN Uncoded 07/06/21 22:28 Consultations 07/07/21 01:15 ED Decision to Admit Stat 07/08/21 18:10 Consult Pulmonology Routine 07/08/21 19:45 Burn CD for patient Stat SINGLE VIEW CHEST CLINICAL HISTORY: Cough and dyspnea. FINDINGS: An AP, portable, upright chest radiograph is compared to study dated 10/15/2015. The cardiomediastinal silhouette is unremarkable. Multifocal airspace consolidation is seen bilaterally, greatest in the lower lobes. No large pleural effusion or pneumothorax is seen. The bony thorax is grossly intact. IMPRESSION: Multifocal airspace consolidation is consistent with pneumonia. Clinical correlation will be required and radiographic follow-up to resolution is recommended. ACT 112: Negative or not required by law. Electronically signed by: Kyle Drake M.D. 07/07/2021 9:04 AM Dictated: 07/07/21902Transcribed: 07/07/21 09 Hospital Course (1) Pneumonia due to COVID-19 virus: Present on admission with worsening SOB and hypoxia Testing Positive for COVID 19 Febrile CXR showed multifocal airspace consolidation is consistent with pneumonia. He was started on IV decadron 6mg Discussed with son and patient about Remdesivir. Pt requested patient to start and and Mrs. Green agreed to start Remdesivir Major side effect about Remdesivir discussed with patient and his son such as elevated liver enzymes Continue monitor liver enzymes while on Remdesivir` Inflammatory marker such as ESR 51, CRP from 10 to 10.5 , Ferritin 629.4 Pt was advised to prone Pt was desaturated and was placed on high flow oxygen Lasix 20mg IV x1 today Currently on 45L with 60% oxygen Case discussed with pulmonology Dr. Diaz that recommended to increase Decadron to 10mg IV (to give one dose now) and additional Lasix later if low urinary output. Pulmonology consult placed. Family requested to transfer to [place] I explained to the family since the transfer request is from the family preference that [facility] will need to accept the patient and pt my get a bill for the transport. Family did not have any objection about any cost. said that they already got in touch with [facility] since they have someone in the board that already get them a bed for the patient. Son called and said that they got in touch with [facility] FARROWING MANAGER that already got te patient a bed in [place]. I spoke to [facility] [place]. Rodas and Dr. Carter (Hospitalist). Dr Carter said the pt is receiving the appropriate therapy for the COVID 19 at [facility] and she doesn't think [facility] will do anything different, but since it is from family request, she does not want to turn the patient away. Dr. Carter agreed to acc ept the patient to transfer to [place]. I called pt to her room phone and family as well to inform them that the patient was accepted to [place]. Continue monitor closely Abnormal UA UA positive for Leukocytes Pt was started on Azactam IV Urine cx grew more than 3 organisms ( contamination) Will d/c IV Azactam Chronic pain: On high doses of pain meds. Hyperlipidemia: Not on any medications. Deep venous thrombosis prophylaxis: Lovenox. Disposition Will transfer to [facility] Accepting physician Dr. Carter Total Time Total Time Spent Total Time Spent (In Minutes): 35 minutes Discharge Plan Discharge Items Patient Disposition: Transfer Acute Care Hospital Reason For Visit: SOB Discharge Diagnosis: COVID 19 Pneumonia Activity: Resume your previous activity Non-emergency contact: Primary Care Provider Call non-emergency contact if: you have any medication questions Follow-up/Referrals: Ovidio Sarmiento MD [Primary Care Provider] - Diet: Heart Healthy Addtl Attending Provider Instructions: Transfer to [facility] Accepted physician Dr. Carter (Hospitalist ) Continue high flow oxygen to keep saturation above 90% Continue IV decadron Pending Studies at Discharge: No Stand-Alone Forms: My [facility] Skilled Items Patient informed of condition?: Yes DNR: No Discharge Level of Care: Other Communicable Disease: Yes Discharge Prognosis: Deteriorating Lines: Peripheral IV Urinary Catheter: No Medications and DC Order Prescriptions: Continued oxycodone 10 mg tablet,oral only,ext.rel.12 hr 30 mg PO Q12 RF: 0 cholecalciferol (vitamin D3) 50 mcg (2,000 unit) capsule 1 unit PO DAILY RF: 0 diazepam 5 mg tablet 5 mg PO TID PRN (Reason: Anxiety) RF: 0 oxycodone-acetaminophen 10-325 mg tablet 1 tab PO Q4H PRN (Reason: Pain) RF: 0 aspirin 325 mg tablet,delayed release (DR/EC) 325 mg PO DAILY RF: 0 ascorbic acid (vitamin C) 1,000 mg tablet 1,000 mg PO DAILY RF: 0 omega-3 fatty acids [Fish Oil Concentrate] 1,000 mg capsule 1,000 mg PO DAILY RF: 0 multivitamin [Multiple Vitamins] Tablet 1 tab PO DAILY RF: 0 OxyContin 80 mg Tablet Extended Release 12 Hr 80 mg PO BID RF: 0 Discharge Orders: Discharge Order (Routine); Ordered 07/08/21 Ordered By: Fercho Loving Admission Data Admit Date/Time: 07/07/21 02:53 Attending Provider: Fercho Loving Admit Provider: Jayy Root Primary Care Provider: Ovidio Sarmiento Other Providers: aJyy Root ; Marc Castle [place]
[2021-07-08 21:53] VITALS: TEMP 99.5
[2021-07-08 22:49] VITALS: BP 112/63
[2021-07-08 22:57] VITALS: PULSE 62; O2SAT 90
== END 2021-07-09 00:04 | disposition short-term general hospital (02) | DRG 177 ==
LOC: ED 20:47 → SUATTDRO 07-07 02:53 → EDINP 07-07 02:53 → 2S 07-07 17:32
DX: R51.9 Headache, unspecified; Z91.012 Allergy to eggs; Z88.8 Allergy status to other drugs, medicaments and biological substances; Z79.899 Other long term (current) drug therapy; R82.998 Other abnormal findings in urine; G89.29 Other chronic pain; Z82.49 Family history of ischemic heart disease and other diseases of the circulatory system; Z91.013 Allergy to seafood; Z51.81 Encounter for therapeutic drug level monitoring; I10 Essential (primary) hypertension; U07.1 COVID-19; Z91.018 Allergy to other foods; J12.82 Pneumonia due to coronavirus disease 2019; R09.02 Hypoxemia; Z79.82 Long term (current) use of aspirin; E78.5 Hyperlipidemia, unspecified; E55.9 Vitamin D deficiency, unspecified; F17.200 Nicotine dependence, unspecified, uncomplicated; Z88.1 Allergy status to other antibiotic agents; Z79.891 Long term (current) use of opiate analgesic; D72.819 Decreased white blood cell count, unspecified